=== PATIENT | male | born 1970 ===

== ENCOUNTER 2023-09-10 12:47 | Emergency (ER) | payer MEDICAID ==
[~2023-09-10] VITALS: Ht 170.2 cm; Wt 81.8 kg
[2023-09-10] MEDS ORDERED: ketorolac trometh inj. 60 MG/2 ML VIAL IM ONE (14:15)
[2023-09-10 15:07] LABS: BASOPHILS % (AUTO) 0.5 % (0-1); EOSINOPHILS # (AUTO) 0.2 X10'3 (0-0.9); EOSINOPHILS % (AUTO) 3.2 % (0-6); HEMATOCRIT 42.1 % (42.0-52.0); HEMOGLOBIN 14.1 g/dl (14.0-17.9); LYMPHOCYTES # (AUTO) 0.7 X10'3 (1.1-4.8); LYMPHOCYTES % (AUTO) 12.7 % (21-51); MEAN CORPUSCULAR HEMOGLOBIN 34.6 PG (27.0-31.0); MEAN CORPUSCULAR HGB CONC 33.6 g/dL (33.0-36.5); MEAN PLATELET VOLUME 8.2 FL (7.4-10.4); MONOCYTES # (AUTO) 0.3 X10'3 (0-0.9); MONOCYTES % (AUTO) 5.6 % (2-12); NEUTROPHILS # (AUTO) 4.1 X10'3 (1.8-7.7); PLATELET COUNT 249 X10'3 (140-440); RED BLOOD COUNT 4.08 X10'6 (4.70-6.10); RED CELL DISTRIBUTION WIDTH 13.5 % (11.5-14.5); WHITE BLOOD COUNT 5.3 X10'3 (4.5-11.0)
[2023-09-10] MEDS ORDERED: MIDAZolam 5mg/ml 2ml vial IV STA (15:12)
[2023-09-10] MEDS ORDERED: fentaNYL/PF 50MCG/1 ML 2ML syringe IV ONE (15:15)
[2023-09-10 15:20] LABS: APTT 28 SECONDS (22-32); PROTHROMBIN TIME 10.4 SECONDS (9.0-12.0)
[2023-09-10 15:21] LABS: ALANINE AMINOTRANSFERASE 125 U/L (12-78); ALBUMIN 3.7 G/DL (3.4-5.0); ALKALINE PHOSPHATASE 68 IU/L (46-116); ANION GAP 6 (8-16); ASPARTATE AMINO TRANSFERASE 87 U/L (10-37); BILIRUBIN,TOTAL 0.3 MG/DL (0.1-1.0); BLOOD UREA NITROGEN 4 MG/DL (7-18); BUN/CREATININE RATIO 6.8 (10.0-20.0); CALCIUM 8.7 MG/DL (8.5-10.1); CHLORIDE 98 MMOL/L (99-107); CREATININE 0.59 MG/DL (0.60-1.10); ETHANOL 296 MG/DL (<10); GLUCOSE 106 MG/DL (70-104); MAGNESIUM 2.2 MG/DL (1.5-2.4); POTASSIUM 4.3 MMOL/L (3.5-5.1); SODIUM 133 MMOL/L (135-145); TOTAL CARBON DIOXIDE 28.9 MMOL/L (24-32); TOTAL PROTEIN 7.5 G/DL (6.4-8.2); eCRCL 138 ML/MIN; eGFR > 90 ML/MIN
[2023-09-10] MEDS ORDERED: propofol 10mg/ml 20ml vial IV ONE ×2 (15:45→16:30)
[2023-09-10] MEDS ORDERED: propofol 1000mg/100ml bottle 100 ML IV ONE (15:45)
[2023-09-10] MEDS ORDERED: etomidate 2mg/ml inj. IV ONE ×2 (16:10→16:30)
[2023-09-10 16:29] VITALS: RESP 16; O2SAT 98
[2023-09-10] MEDS ORDERED: MIDAZolam 5mg/ml 2ml vial IV ONE (16:30)
[2023-09-10] MEDS ORDERED: IBUP-1984 PO (16:35)
[2023-09-10 17:02] VITALS: BP 154/78; PULSE 78; RESP 18; TEMP 98.1; O2SAT 94
== END 2023-09-10 17:24 | disposition home or self-care (01) ==
LOC: ER 12:48
DX: S43.004A Unspecified dislocation of right shoulder joint, initial encounter (principal); S00.211A Abrasion of right eyelid and periocular area, initial encounter; W19.XXXA Unspecified fall, initial encounter; Y93.89 Activity, other specified; Y92.89 Other specified places as the place of occurrence of the external cause; Y99.8 Other external cause status
CPT/HCPCS: 23650; 36415; 73020; 73030; 80053; 80320; 83735; 85025; 85610; 85730; 96372; 96374; 96375; 99152; 99285; J1885; J2250; J2704; J3490; J7030; 94760; 99153